=== PATIENT | female | born 1965 | race Caucasian/White ===

== ENCOUNTER 2019-03-31 11:19 | Emergency (ER) | payer OTHER, BC ==
[2019-03-31] MEDS: ACETAMINOPHEN 500 MG TAB PO (12:36)
== END 2019-03-31 14:10 | disposition home or self-care (01) ==
LOC: FTE 11:19
DX: S92.512A Displaced fracture of proximal phalanx of left lesser toe(s), initial encounter for closed fracture (principal); I10 Essential (primary) hypertension; E11.9 Type 2 diabetes mellitus without complications; W22.8XXA Striking against or struck by other objects, initial encounter; Y92.9 Unspecified place or not applicable
CPT/HCPCS: 73630; 73630-LT; 99283-25